=== PATIENT | female | born 1970 | race African-American/Black ===

== ENCOUNTER 2016-08-17 01:22 | Emergency (ER) | payer MEDICARE, OTHER ==
[~2016-08-17 01:22] MED LIST: *UNABLE1; AMB10 PO; APRES25 PO; ATIVAN2 MG PO; ATV1 PO; BACTRONASA NAS; BENTYL10 PO; C1 PO; C5 PO; CALCITRIOL; CALCITRIOL1 MCG/M1 OR; CALCIUM CARBONATE PO; CALMOSEPTINE O2.5 OZ TOP; CAT1 PO; CAT2 PO; CELEXA10 PO; CENTRUM TAB1 TAB PO; CLARIT10 PO; COREG; COREG PO; COREG3 PO; COREG6 PO; COUMADIN; Coumadin; DIAZEPAM 5 MG/ML IC; DURACLON; EPOGEN10000 MG/M SC; FLOVENT220 INH; HUMALOG SC; IRON325 MG PO; KAPIDEX30 MG PO; L80 PO; LANTUS FOR SC; LANTUS SC; LEVEMFLXPN SC; LEVEMIR SC; LORAZEPAM; LORT7 PO; MAGOX4 PO; MIRALAXPKT PO; MUCINEX D1 TA1 OR; NEPHRO PO; NEPHROCAPS PO; NEUR100 PO; NEUR300 PO; NEURONTIN; NEXIUM; NEXIUM40 PO; NITROSTAT0.4 MG SL; NORCO1 TAB PO; NORV5 PO; NOVOLOG SC; OPANA; OPANA10 MG PO; PCET PO; PEPCID; PEPCID40 MG OR; PERCOCET1 TA4 PO; PHENERGAN 2525 MG/M1 IV; PHOSLO PO; PR25 PO; PROAIR HFA INH; PROVHFA INH; PROZ10 PO; REG5 PO; REGLAN; RENAGEL800 PO; RENAL; RENVELA800 MG PO; REST15 PO; ROCALTROL 0.0.25 MCG OR; ROCALTROL 0.0.25 MCG PO; ROCALTROL0.5 MCG OR; SEROQUEL; SEROQUEL1C PO; SEROQUEL25 PO; SEVE800T PO; SINGULAIR1 PO; SYMBICORT 160/41 INH INH; T PO; TRAZ100 PO; TRAZ50 PO; TRAZADONE; TRIAMCINOLONE OINT TOP; TUMS; TUMSROLL PO; ULTRAM ER100 MG PO; ULTRAM50 PO; Z-PAK PO; Z100 PO; ZOL100 PO; ZOL50 PO; Zoloft; [UNRECOGNIZED DRUG - CODE]; [UNRECOGNIZED DRUG - CODE] IV
[2016-08-17 01:58] LABS: BASOPHILS 0.1 %; BASOPHILS ABSOLUTE 0.01 10/3/uL (0.0-0.16); EOSINOPHILS ABSOLUTE 0.45 10/3/uL (0.0-0.53); ER CBC TAT 0 Hrs 05 Mins; HEMATOCRIT 21.6 % (36.0-48.0); IMMATURE GRANULOCYTES 0.1 %; IMMATURE GRANULOCYTES ABSOLUTE 0.01 10/3/uL (0.0-0.11); LYMPHOCYTES 16.7 %; LYMPHOCYTES ABSOLUTE 1.25 10/3/uL (0.67-4.30); MANUAL DIFF NO %; MEAN CORPUS HGB CONC 32.4 g/dL (32.0-36.0); MEAN CORPUSCULAR HEMOGLOB 26.2 pg (26.0-34.0); MEAN CORPUSCULAR VOLUME 80.9 fL (80-100); MEAN PLATELET VOLUME 8.9 fL (9.2-13.0); MONOCYTES 7.6 %; MONOCYTES ABSOLUTE 0.57 10/3/uL (0.21-1.20); NEUTROPHILS 69.5 %; PLATELET COUNT 141 10/3/uL (150-400); RBC DISTRIBUTION WIDTH 16.7 % (12.0-16.0); RED CELL COUNT 2.67 10/6/uL (4.0-5.6); WHITE BLOOD CELLS 7.5 10/3/uL (4.5-10.5)
[2016-08-17 02:18] LABS: A/G RATIO 0.7 (0.7-1.9); ALBUMIN 3.4 G/DL (3.5-5.0); ALKALINE PHOSPHATASE 90 U/L (45-117); BUN (BLOOD UREA NITROGEN) 82 MG/DL (6-23); CALCIUM, SERUM 8.2 MG/DL (8.5-10.4); CHLORIDE, SERUM 100 MMOL/L (96-112); CO2 (CARBON DIOXIDE) 29 MMOL/L (24-34); GFR AFRICAN AMERICAN 4 ML/MIN (>=60); GFR NON AFRICAN AMERICAN 3 ML/MIN (>=60); GLOBULIN 4.7 G/DL (2.5-4.1); GLUCOSE, SERUM 74 MG/DL (60-99); POTASSIUM, SERUM 5.3 MMOL/L (3.5-5.3); SGOT(AST) 30 U/L (5-40); SGPT(ALT) 30 U/L (5-65); SODIUM, SERUM 137 MMOL/L (135-148); TOTAL BILIRUBIN 0.4 MG/DL (0-1.2); TOTAL PROTEIN 8.1 G/DL (6.0-8.5)
[2016-08-17 02:38] LABS: LACTATE 0.5 MMOL/L (0.3-2.4)
== END 2016-08-17 04:50 | disposition home or self-care (01) ==
LOC: ER 01:22
PROVIDERS: Specialist
DX: N18.6 End stage renal disease (principal); I12.0 Hypertensive chronic kidney disease with stage 5 chronic kidney disease or end stage renal disease; D63.8 Anemia in other chronic diseases classified elsewhere; R60.0 Localized edema; F32.9 Major depressive disorder, single episode, unspecified; F41.9 Anxiety disorder, unspecified; E11.22 Type 2 diabetes mellitus with diabetic chronic kidney disease; Z99.2 Dependence on renal dialysis; Z90.89 Acquired absence of other organs; Z91.041 Radiographic dye allergy status; Z88.8 Allergy status to other drugs, medicaments and biological substances; Z88.2 Allergy status to sulfonamides; Z91.013 Allergy to seafood; Z88.5 Allergy status to narcotic agent; Z91.040 Latex allergy status; Z88.1 Allergy status to other antibiotic agents; Z79.899 Other long term (current) drug therapy
CPT/HCPCS: 71010; 73700-LT; 80053; 83605; 83880; 85025; 96374; 96375; 99284; J1170; J2405

== ENCOUNTER 2016-10-07 13:00 | Inpatient (IN) | payer MEDICARE, OTHER ==
--- NOTE | ~2016-10-07 | CN ---
Consultation Report [facility] [address] [place]. [address] NAME: MONICA MARTINEZ : 74 STATUS : ADM IN PAT#: [id number] AGE: 45 ADM/REG DATE : 10/07/16 MR#: [id number] REPORT SERV DATE: 10/07/16 DICTATED BY: CARTER MARTINEZ DATE: 10/07/16 REPORT STATUS : Draft TRANSCRIBED BY: MODSwati DATE: 10/07/16 DATE OF CONSULTATION: HISTORY OF PRESENT ILLNESS: This is a 45-year-old patient who presented to the emergency room with increasing shortness of breath, respiratory failure, and hypoxia. The patient has end-stage renal disease, is on chronic dialysis, dialyzing on Wednesday, Wednesday, Wednesday. She has missed dialysis since 10/02/2016. She was seen in the ER and was placed on BiPAP. ABGs initially showed a pH of 7.18, pCO2 of 52, pO2 of 107, bicarbonate of 19. The patient was given 80 mg of IV Lasix, half amp of bicarbonate, 2 mg total of Ativan, and 125 of Solu- Medrol. The reason for the Solu-Medrol is not entirely clear. The patient was in severe respiratory distress, went for a head scan, and was still left on BiPAP and brought to the dialysis unit, breathing 42 times a minute, unresponsive, and in florid respiratory failure. She was immediately intubated even before dialysis was started because of extreme respiratory distress. At the time I saw her, the patient was using all accessory muscles and had retraction of the intercostal muscles. Not sure why the patient was not intubated in the ER. In any event, she is currently intubated, sedated, and undergoing dialysis. We will continue to follow her for management of her respiratory issues. ALLERGIES: SHE IS ALLERGIC TO IV DYE WHICH CAUSES A RASH; EDDIE INHIBITORS, WHICH CAUSE SWELLING; SULFA, SHELLFISH, DIPHENHYDRAMINE, VANCOMYCIN, LATEX; AND HAS ADVERSE REACTION TO DEXFERRUM, WHICH CAUSES BLISTERS ALL OVER; MORPHINE CAUSES ITCHING AND INCREASED HEART RATE. MEDICATIONS: This is a list of her medications that will need to be confirmed: She is on Proventil, Diflucan, was supposed to take one dose, Neurontin, hydralazine, hydrocodone, Ativan, Endocet, Phenergan, Zoloft, and Restoril. PAST MEDICAL HISTORY: Quite complex. She was recently seen at [facility], discharged on 09/24/2016 after she was treated for an infected graft in her left groin. This was removed. Sutures are still in place. She also has a PermCath placed via the right atrial appendage which was done by Dr. Chandler. The patient has extremely limited access, both venous and arterial, and this is the last site as far as I can tell that a dialysis access can be placed. The patient is extremely addicted to pain medicines. 1. She has insulin-dependent diabetes mellitus. 2. Hypertension. 3. 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 4. Obstructive sleep apnea. 5. Anxiety and depression. 6. History of seizure disorder. 7. Parathyroidectomy. 8. History of hypocalcemia and then recent resection of an infected left thigh graft. 9. Failed renal transplant with transplant nephrectomy, history of biopsy-proven FSGS. FAMILY HISTORY: Significant for end-stage renal disease in several family members. Strong family history of diabetes and hypertension. Consultation Report [address] [place]. [address] NAME: MONICA MARTINEZ : 74 STATUS : ADM IN PAT#: [id number] AGE: 45 ADM/REG DATE : 10/07/16 MR#: [id number] REPORT SERV DATE: 10/07/16 DICTATED BY: CARTER MARTINEZ DATE: 10/07/16 REPORT STATUS : Draft TRANSCRIBED BY: HALEIGH DATE: 10/07/16 SOCIAL HISTORY: There is not any reported history of alcohol or tobacco abuse or illicit drug use. REVIEW OF SYSTEMS: Could not be obtained from the patient since she required urgent intubation and mechanical ventilation. PHYSICAL EXAMINATION: VITAL SIGNS: Her temperature is 97.6, pulse was 140, respiratory rate was 42 breaths per minute on BiPAP, O2 saturation was 98% on 15 L when she arrived to the emergency room. SKIN: Cool to touch. HEENT: The head is atraumatic and normocephalic. Pupils are sluggish but equal. Sclerae anicteric. Conjunctivae are pink. Nasal mucosa is within normal limits. Oral mucosa is moist. Posterior pharynx was unremarkable during intubation. NECK: Supple without JVD, lymphadenopathy, or thyromegaly. She has a right-sided PermCath. She has several failed grafts in her left arm and numerous old scars in both groins and her right arm. LUNGS: Reveal coarse bilateral breath sounds. No wheezing was heard during my exam. CARDIAC: Reveals a regular rate and rhythm. No significant murmurs heard. BREASTS: Symmetrical without masses. ABDOMEN: Obese, nondistended. No tenderness could be elicited. Bowel sounds are present but diminished. RECTAL AND GENITAL: Exam was deferred. She still has sutures in the left groin and the left lateral thigh. There was no drainage from the site. LOWER EXTREMITIES: With trace edema. Pulses are markedly decreased in the lower extremities. NEUROLOGIC: Limited secondary to the patient's extreme respiratory distress and then requirement for sedation and mechanical ventilation. LAB AND OTHER TESTS: CT scan of the head was negative. ABG initially showed a pH of 7.18, pCO2 of 52, pO2 of 107, bicarbonate of 19. White cell count is 13, hemoglobin is 9, hematocrit is 29, and platelet count is 362,000. INR is 1.3. Lactic acid level is 2.6. Sodium is 140, potassium 5.4, chloride 105, bicarb 22, BUN 67, creatinine 12.4. Magnesium 2.1. LFTs are within normal limits. Lipase is normal. Troponin is 0.03. BNP is greater than 5000. Post intubation gas shows a pH of 7.36, pCO2 of 37, PO2 of 476, bicarb of 20, O2 saturation of 99.7. ASSESSMENT AND PLAN: This is a 45-year-old patient, end-stage renal disease, on dialysis, noncompliant with dialysis, hypertension, multiple graft placements that have failed, and a recent removal of an infected left graft who now presents in extreme hypercapnic, hypoxic respiratory failure requiring urgent intubation and mechanical ventilation, more than likely secondary to volume overload. At this point, we will follow the patient closely, obtain sputum Gram stain and cultures, procalcitonin, and blood cultures to rule out any other etiology of her presentation other than that of not being dialyzed since 10/02/2016. The case has been discussed with Nephrology. She will be on DVT prophylaxis with subcutaneous Consultation Report [facility] [address] [place]. [address] NAME: MONICA MARTINEZ : 74 STATUS : ADM IN PAT#: [id number] AGE: 45 ADM/REG DATE : 10/07/16 MR#: [id number] REPORT SERV DATE: 10/07/16 DICTATED BY: CARTER MARTINEZ DATE: 10/07/16 REPORT STATUS : Draft TRANSCRIBED BY: HALEIGH DATE: 10/07/16 heparin, GI prophylaxis with IV Protonix. The only access we have is the PermCath and pending approval of any other site for access by Vascular Surgery, the PermCath will need to be used. The patient is in critical condition and is at risk for further hemodynamic deterioration and needs frequent manipulation of the vent and monitoring of her blood pressure. Total critical care time will be 60 minutes, starting at 2:00 p.m. and ending at 3:00 p.m., with 10 minutes required for intubation for a total of 50 minutes of critical care time. /HALEIGH Carter Martinez M.D. / [id number] CC: Carter Martinez M.D.
--- NOTE | ~2016-10-07 | HP ---
History And Physical [facility] [address] [place]. [address] NAME: MONICA MARTINEZ : 74 STATUS : ADM IN [facility]#: [id number] AGE: 45 ADM/REG DATE : 10/07/16 MR#: [id number] REPORT SERV DATE: 10/07/16 DICTATED BY: DATE: REPORT STATUS : Draft TRANSCRIBED BY: MODL DATE: 10/07/16 DATE OF ADMISSION: 10/07/2016 CHIEF COMPLAINT: Chest pain and shortness of breath. HISTORY OF PRESENT ILLNESS: Ms. Martinez is a 45-year-old, black female, well known to our service with end-stage renal disease, dialyzes on Wednesday, Wednesday, and Wednesday at [facility] and apparently presented to the emergency room for the above complaints and in extreme respiratory distress, tachypnea with respiratory rate in the 60s, hypoxia and they placed the patient on BiPAP with some improvement; however, not a significant improvement. Her ABG did show improvement in hypoxia, but she is still quite tachypneic and by the time she arrived to the dialysis unit on BiPAP, the patient was nonresponsive and had to be intubated on her arrival here, so history really could not be obtained by us. She was just most recently discharged from [facility] on 09/24/2016 for an infected AV graft and then she had a prolonged stay there. She had a left thigh graft and then CT Surgery placed a PermCath in her right atrium. We had called the clinic to get some details about the recent events, apparently she was last dialyzed on 10/02/2016. Her chest x-ray has some edema, but nothing remarkable. She had a CT of the head in the emergency room, that was negative. White blood cell count is only mildly elevated and she is going to be admitted to the intensive care unit for further evaluation and treatment. PAST MEDICAL HISTORY: End-stage renal disease; failed renal transplant; bilateral SVC syndrome; hypertension; multiple AV accesses with failure; most recently a left thigh graft with abscess and infection that had to be removed; obstructive sleep apnea; chronic pain, uses excessive pain medicine; anxiety; FSGS secondary to hyperparathyroidism; seizure disorder; parathyroidectomy; and hypocalcemia. FAMILY MEDICAL HISTORY: Positive strongly for end-stage renal disease in mother and sister. SOCIAL HISTORY: Occasionally smokes marijuana for the last history. No cigarettes or alcohol. Lives with family. MEDICATIONS AT HOME: This is an incomplete list and it says hydrocodone, lorazepam, oxycodone, Phenergan, Zoloft, Restoril, albuterol, Diflucan, Neurontin, and hydralazine. REVIEW OF SYSTEMS: Unable to obtain. PHYSICAL EXAMINATION: VITAL SIGNS: Blood pressure of 194/129; heart rate in the 130s; respiratory rate on arrival was in the 30s, now she is currently intubated. GENERAL: This is an ill-appearing black female. She was not awake or oriented on her arrival here. She was in respiratory distress. HEENT: Normocephalic and atraumatic. Conjunctivae are clear. Sclerae are anicteric. She does have periorbital edema. Oral mucosa could not be assessed. On arrival, she had BiPAP on and then she has been intubated during the course of my exam. History And Physical [address] [address] NAME: MONICA MARTINEZ : 74 STATUS : ADM IN [facility]#: [id number] AGE: 45 ADM/REG DATE : 10/07/16 MR#: [id number] REPORT SERV DATE: 10/07/16 DICTATED BY: DATE: REPORT STATUS : Draft TRANSCRIBED BY: HALEIGH DATE: 10/07/16 LUNGS: Her respirations was tachypneic. She had bilateral wheezing noted. HEART RATE: Heart tones are distant. I did not hear any murmur, rub, or gallop. She has a staple across her chest wall from her PermCath placement. There is no drainage. No surrounding erythema. No fluctuance or induration. ABDOMEN: Obese, soft, and nontender. Bowel sounds are active. BACK: I could not examine her back. EXTREMITIES: She does have some mild edema, but not any significant. SKIN: No unusual rashes or skin lesions. NEURO: Could not be performed. PERTINENT LABS AND X-RAYS: CT of the head was negative. Labs: ABG; pH of 7.36, pCO2 of 37, and PO2 of 476. BNP of greater than 5000. Sodium 140, potassium 5.4, chloride 105, CO2 of 22, BUN of 67, creatinine of 12, and magnesium 2.1. Bilirubin is 0.4, alkaline phosphatase is 105, SGOT of 28, SGPT of 19, lipase of 328, troponin 0.03, and lactate 2.6. IMPRESSION: 1. Acute hypercapnic-hypoxic respiratory failure, requiring intubation. 2. Noncompliance to hemodialysis. 3. Failed renal transplant. 4. Type 2 diabetes. 5. Obstructive sleep apnea. 6. Bilateral superior vena cava syndrome. 7. Accelerated hypertension. 8. Calciphylaxis, chronic pain. 9. End-stage renal disease, Wednesday, Wednesday, Wednesday [address]. 10.History of seizure. 11.History of parathyroidectomy with subsequent hypocalcemia. 12.Anxiety. 13.Depression. 14.Focal segmental glomerulosclerosis. 15.Obesity. 16.Drug-seeking behavior. PLAN: She is being emergently dialyzed as we speak and Critical Care has been consulted, and we have to get a better access in which is difficult in this patient and she will probably require drip at some point if we can get access for such. She will get cultures. Ventilator support will be managed by Pulmonary Critical Care. Further orders and recommendations pending clinical course. NICOLE/HALEIGH JIM Shore / [id number] History And Physical [address] [address] NAME: MONICA MARTINEZ NEERAJ : 74 STATUS : ADM IN PAT#: [id number] AGE: 45 ADM/REG DATE : 10/07/16 MR#: [id number] REPORT SERV DATE: 10/07/16 DICTATED BY: DATE: REPORT STATUS : Draft TRANSCRIBED BY: KAMALAL DATE: 10/07/16 CC: Tucker Pal M.D.
--- NOTE | ~2016-10-07 | OP ---
Record Of [facility] [address] [address] NAME: MONICA MARTINEZ : 74 STATUS : ADM IN PAT#: [id number] AGE: 45 ADM/REG DATE : 10/07/16 MR#: [id number] REPORT SERV DATE: 10/07/16 DICTATED BY: CARTER MARTINEZ DATE: 10/07/16 REPORT STATUS : Draft TRANSCRIBED BY: MODL DATE: 10/07/16 DATE OF PROCEDURE: 10/07/2016 PROCEDURE: Intubation. REASON: Respiratory distress. The patient needed urgent intubation, so consent was not obtained. PROCEDURE: 5 mL of Diprivan and 20 mg of IV etomidate were given. The patient was intubated using a GlideScope. Vocal cords were well visualized and intubation was accomplished using a 7.5 endotracheal tube and was done on the first attempt. Bilateral breath sounds were heard. CO2 sensor changed appropriate color from blue to yellow. Chest x-ray is pending. /HALEIGH Carter Martinez M.D. / [id number] CC: Tucker Pal M.D.
--- NOTE | ~2016-10-07 | DS ---
Discharge Summary [facility] [address] [place]. [address] NAME: MONICA MARTINEZ : 74 STATUS : ADM IN PAT#: [id number] AGE: 45 ADM/REG DATE : 10/07/16 MR#: [id number] REPORT SERV DATE: 10/13/16 DICTATED BY: CAITLYN YING DATE: 10/12/16 REPORT STATUS : Draft TRANSCRIBED BY: MODL DATE: 10/12/16 ADMISSION DATE: 10/07/2016 DISCHARGE DATE: 10/12/2016 INDICATION FOR ADMISSION: Chest pain, shortness of breath. DISCHARGE DIAGNOSES: 1. Acute hypercapnic hypoxemic respiratory failure, requiring intubation. 2. Noncompliance with hemodialysis. 3. Failed renal transplant. 4. Type 2 diabetes mellitus. 5. Obstructive sleep apnea. 6. Bilateral superior vena cava syndrome. 7. Accelerated hypertension. 8. History of chronic pain from calciphylaxis. 9. History of chronic hypocalcemia following parathyroidectomy for calciphylaxis. 10.End-stage renal disease, dialyzing Wednesday, Wednesday, Wednesday at [address] [place] [address] by right atrial PermCath placed at [place] by Cardiothoracic Surgery directly into right atrium with pericardial wrap. 11.History of seizure disorder. 12.Anxiety. 13.Depression. 14.History of focal segmental glomerular sclerosis leading to end-stage renal disease, with recurrence leading to failed renal transplant. 15.Obesity. 16.Drug-seeking behavior. HOSPITAL COURSE: The patient presented to the emergency room with altered mentation reporting shortness of breath and chest pain. She had been noncompliant with dialysis and was placed on BiPAP initially. She was brought to hemodialysis unit emergently for dialysis with fluid removal and actually required intubation. She had recently been released from [facility] after removal of an infected left thigh graft, which was her last possible dialysis access. CT surgery placed a PermCath into her right atrium directly through the chest wall. This appears to be her last dialysis access. Her last dialysis prior to this admission was on 10/02/2016. She underwent emergent dialysis and was dialyzed on 10/07/2016, 10/08/2016, 10/10/2016, and 10/12/2016. She had significant fluid removal. Extubation was achieved and she was transferred to the floor. She had been on Cardene for accelerated hypertension while in the unit, but was managed after volume removal with oral medications. She continued to request Dilaudid after transfer from the unit. She was advised that this was her last dialysis access. She was instructed that she needed to be compliant with treatment and followup each treatment for catheter care of the access. She was also advised that it would be in her best interest to go to [place] if any access intervention needed to be made because this would have to be done by her CT surgeon. Palliative care was asked to see the patient prior to discharge due to the exhaustion of vascular access. She continued to request Dilaudid Discharge Summary [facility] [id number] [place]. [address] NAME: MONICA MARTINEZ : 74 STATUS : ADM IN PAT#: [id number] AGE: 45 ADM/REG DATE : 10/07/16 MR#: [id number] REPORT SERV DATE: 10/13/16 DICTATED BY: CAITLYN YING DATE: 10/12/16 REPORT STATUS : Draft TRANSCRIBED BY: HALEIGH DATE: 10/12/16 through the hospitalization and evidence for drug-seeking behavior. The patient will be discharged home with followup at [address] [place] [address] as scheduled. DISCHARGE MEDICATIONS: Ativan 1 mg twice daily as needed, Zoloft 50 mg at bedtime, Diflucan 150 mg x1 dose on 10/03/2016 for completion of therapy, hydrocodone 10/325 one twice daily p.r.n., hydralazine 25 mg three times daily, Restoril 15 mg at bedtime p.r.n., albuterol inhaler two puffs 3 times daily p.r.n., Neurontin 100 mg q.a.m. and 300 mg at bedtime, acetaminophen 650 mg daily p.r.n., Lac-Hydrin lotion 12% applied topically as needed, and sublingual nitroglycerin 0.4 mg p.r.n. chest pain. FOLLOWUP: Follow up on dialysis at [address] [place] [address] as scheduled. DIET: Diet will be renal diet, 1500 mL fluid restriction per day. Combine with 2000 calorie ADA diet. ACTIVITY: Activity will be per home routine and she was advised to keep catheter site dry. DICTATED BY: Aldair Allen/HALEIGH Caitlyn Ying M.D. / [id number] CC: Caitlyn Ying M.D.
[2016-10-07 12:03] LABS: BE (BASE EXCESS) -9.1 MEQ/L (0 +/- 2.5); CARBOXYHEMOGLOBIN 1.6 % (0-3); DEVICE NRB; INSTRUMENT SERIAL # 8087; METHEMOGLOBIN 0.4 % (0-3); O2 CONTENT 13.5 VOL% (18-24); PCO2 (CO2 TENSION) 52 MMHG (35-45); PO2 (O2 TENSION) 107 MMHG (79-93); SAMPLE Arterial; pH 7.18 (7.37-7.43)
[2016-10-07 12:37] LABS: BASOPHILS 0.5 %; BASOPHILS ABSOLUTE 0.07 10/3/uL (0.0-0.16); EOSINOPHILS 6.3 %; EOSINOPHILS ABSOLUTE 0.82 10/3/uL (0.0-0.53); ER CBC TAT 0 Hrs 05 Mins; HEMATOCRIT 29.3 % (36.0-48.0); IMMATURE GRANULOCYTES 0.5 %; IMMATURE GRANULOCYTES ABSOLUTE 0.06 10/3/uL (0.0-0.11); LYMPHOCYTES 20.2 %; LYMPHOCYTES ABSOLUTE 2.63 10/3/uL (0.67-4.30); MANUAL DIFF NO %; MEAN CORPUS HGB CONC 30.7 g/dL (32.0-36.0); MEAN CORPUSCULAR HEMOGLOB 24.3 pg (26.0-34.0); MEAN PLATELET VOLUME 8.8 fL (9.2-13.0); MONOCYTES 6.8 %; MONOCYTES ABSOLUTE 0.88 10/3/uL (0.21-1.20); NEUTROPHILS 65.7 %; NEUTROPHILS ABSOLUTE 8.57 10/3/uL (2.02-8.40); PLATELET COUNT 362 10/3/uL (150-400); RBC DISTRIBUTION WIDTH 18.2 % (12.0-16.0); RED CELL COUNT 3.71 10/6/uL (4.0-5.6)
[2016-10-07 12:44] LABS: INTERNATIONAL NORMAL RATI 1.3 UNITS (-); PARTIAL THROMBO TIME 27.9 SEC (22.5-37.2); PROTIME (NOT ORD) 16.1 SEC (12.0-14.5)
[2016-10-07 12:54] LABS: LACTATE 2.6 MMOL/L (0.3-2.4)
[2016-10-07 12:55] LABS: CALCIUM, SERUM 8.6 MG/DL (8.5-10.4); CHEST PAIN PROFILE TAT 0 Hrs 23 Mins; CHLORIDE, SERUM 105 MMOL/L (96-112); DIRECT BILIRUBIN 0.1 MG/DL (0.0-0.4); GFR AFRICAN AMERICAN 4 ML/MIN (>=60); GFR NON AFRICAN AMERICAN 3 ML/MIN (>=60); INDIRECT BILIRUBIN(NOT ORDER) 0.3 MG/DL (0.1-0.9); POTASSIUM, SERUM 5.4 MMOL/L (3.5-5.3); SGOT(AST) 28 U/L (5-40); SGPT(ALT) 19 U/L (5-65); SODIUM, SERUM 140 MMOL/L (135-148); TOTAL BILIRUBIN 0.4 MG/DL (0-1.2); TOTAL PROTEIN 9.1 G/DL (6.0-8.5); TROPONIN I 0.03 NG/ML (<0.05)
[2016-10-07 12:56] LABS: ALKALINE PHOSPHATASE 105 U/L (45-117); BUN (BLOOD UREA NITROGEN) 67 MG/DL (6-23); CO2 (CARBON DIOXIDE) 22 MMOL/L (24-34); GLUCOSE, SERUM 139 MG/DL (60-99)
[2016-10-07 13:17] LABS: BE (BASE EXCESS) -4.6 MEQ/L (0 +/- 2.5); BIPAP 18/7 cm.H2O; CARBOXYHEMOGLOBIN 1.1 % (0-3); HCO3 (ACTUAL BICARBONATE) 20.4 MEQ/L (23-27); HEMOBLOGIN CONTENT 9.6 G/DL (12-16); INSTRUMENT SERIAL # 8087; METHEMOGLOBIN 0.5 % (0-3); O2 CONTENT 14.6 VOL% (18-24); PCO2 (CO2 TENSION) 37 MMHG (35-45); PO2 (O2 TENSION) 476 MMHG (79-93); SAMPLE Arterial; pH 7.36 (7.37-7.43)
[2016-10-07] MEDS ORDERED: NORCO1 TAB PO (13:25)
[2016-10-07] MEDS ORDERED: FLUCON150 PO (13:25)
[2016-10-07] MEDS ORDERED: ENDOCET1 TA3 (13:26)
[2016-10-07] MEDS ORDERED: ATV1 PO (13:26)
[2016-10-07] MEDS ORDERED: NEUR100 PO (13:26)
[2016-10-07] MEDS ORDERED: ZOL50 PO (13:27)
[2016-10-07] MEDS ORDERED: APRES25 PO (13:27)
[2016-10-07] MEDS ORDERED: REST15 PO (13:28)
[2016-10-07] MEDS ORDERED: PR25 (13:28)
[2016-10-07] MEDS ORDERED: PROVHFA INH (13:28)
[2016-10-07] MEDS ORDERED: *UNABLE3 (13:29)
[2016-10-07 15:07] LABS: INSTRUMENT SERIAL # 8083; PCO2 (CO2 TENSION) 42 MMHG (35-45); PO2 (O2 TENSION) 292 MMHG (79-93); pH 7.36 (7.37-7.43)
[2016-10-07 15:08] LABS: ALLENS TEST Pos; BE (BASE EXCESS) -1.9 MEQ/L (0 +/- 2.5); CARBOXYHEMOGLOBIN 0.4 % (0-3); HCO3 (ACTUAL BICARBONATE) 23.5 MEQ/L (23-27); HEMOBLOGIN CONTENT 10.3 G/DL (12-16); METHEMOGLOBIN 0.4 % (0-3); MODE CMV; O2 CONTENT 15.1 VOL% (18-24); OPERATOR ID 35784; SAMPLE Arterial; TIDAL VOLUME 500 ML
[2016-10-07 16:36] LABS: PROCALCITONIN 0.23 ng/mL (<0.5)
[2016-10-07 20:15] LABS: SALICYLATE 1.7 MG/DL (-)
[2016-10-07 20:18] LABS: ALCOHOL < 10 MG/DL (0)
[2016-10-08 01:06] LABS: CPK (IF ELEVATED MB BANDS) 95 U/L (0-200); SALICYLATE 1.8 MG/DL (-); TROPONIN I 0.12 NG/ML (<0.05)
[2016-10-08 01:07] LABS: ACETAMINOPHEN LEVEL (TYLENOL) < 2.0 MCG/ML (10.0-20.0)
[2016-10-08 01:08] LABS: ALCOHOL < 10 MG/DL (0)
[2016-10-08 03:52] LABS: ALLENS TEST Pos; BE (BASE EXCESS) -0.4 MEQ/L (0 +/- 2.5); CARBOXYHEMOGLOBIN 0.6 % (0-3); HCO3 (ACTUAL BICARBONATE) 24.4 MEQ/L (23-27); HEMOBLOGIN CONTENT 8.5 G/DL (12-16); INSTRUMENT SERIAL # 35151; METHEMOGLOBIN 0.6 % (0-3); MODE CMV; O2 CONTENT 10.2 VOL% (18-24); OPERATOR ID 23712; PCO2 (CO2 TENSION) 41 MMHG (35-45); PO2 (O2 TENSION) 57 MMHG (79-93); SAMPLE Arterial; TIDAL VOLUME 470 ML; pH 7.39 (7.37-7.43)
[2016-10-08 03:59] LABS: BASOPHILS 0 %; EOSINOPHILS 0.2 %; EOSINOPHILS ABSOLUTE 0.01 10/3/uL (0.0-0.53); HEMATOCRIT 24.1 % (36.0-48.0); HEMOGLOBIN 7.4 g/dL (12.0-16.0); IMMATURE GRANULOCYTES 0.5 %; IMMATURE GRANULOCYTES ABSOLUTE 0.03 10/3/uL (0.0-0.11); LYMPHOCYTES 6.2 %; LYMPHOCYTES ABSOLUTE 0.39 10/3/uL (0.67-4.30); MANUAL DIFF NO %; MEAN CORPUS HGB CONC 30.7 g/dL (32.0-36.0); MEAN CORPUSCULAR HEMOGLOB 23.9 pg (26.0-34.0); MEAN PLATELET VOLUME 8.3 fL (9.2-13.0); MONOCYTES 4.3 %; MONOCYTES ABSOLUTE 0.27 10/3/uL (0.21-1.20); NEUTROPHILS 88.8 %; NEUTROPHILS ABSOLUTE 5.63 10/3/uL (2.02-8.40); PLATELET COUNT 200 10/3/uL (150-400); RED CELL COUNT 3.09 10/6/uL (4.0-5.6); WHITE BLOOD CELLS 6.3 10/3/uL (4.5-10.5)
[2016-10-08 04:19] LABS: A/G RATIO 0.5 (0.7-1.9); ALBUMIN 2.6 G/DL (3.5-5.0); CHLORIDE, SERUM 102 MMOL/L (96-112); GLOBULIN 5.3 G/DL (2.5-4.1); GLUCOSE, SERUM 147 MG/DL (60-99); PHOSPHORUS, SERUM 5.7 MG/DL (2.5-4.5); POTASSIUM, SERUM 4.7 MMOL/L (3.5-5.3); SGOT(AST) 20 U/L (5-40); SGPT(ALT) 14 U/L (5-65); SODIUM, SERUM 140 MMOL/L (135-148); TOTAL BILIRUBIN 0.4 MG/DL (0-1.2); TOTAL PROTEIN 7.9 G/DL (6.0-8.5)
[2016-10-08 04:20] LABS: ALKALINE PHOSPHATASE 89 U/L (45-117); BUN (BLOOD UREA NITROGEN) 45 MG/DL (6-23); CO2 (CARBON DIOXIDE) 27 MMOL/L (24-34); CREATININE 8.68 MG/DL (0.55-1.02); GFR AFRICAN AMERICAN 6 ML/MIN (>=60); GFR NON AFRICAN AMERICAN 5 ML/MIN (>=60)
[2016-10-08 04:57] LABS: CPK (IF ELEVATED MB BANDS) 75 U/L (0-200)
[2016-10-08 05:01] LABS: TROPONIN I 0.08 NG/ML (<0.05)
[2016-10-09 03:32] LABS: BASOPHILS 0.3 %; BASOPHILS ABSOLUTE 0.02 10/3/uL (0.0-0.16); EOSINOPHILS 5.4 %; EOSINOPHILS ABSOLUTE 0.38 10/3/uL (0.0-0.53); HEMATOCRIT 25.9 % (36.0-48.0); HEMOGLOBIN 7.6 g/dL (12.0-16.0); IMMATURE GRANULOCYTES 0.4 %; IMMATURE GRANULOCYTES ABSOLUTE 0.03 10/3/uL (0.0-0.11); LYMPHOCYTES 13.9 %; LYMPHOCYTES ABSOLUTE 0.98 10/3/uL (0.67-4.30); MEAN CORPUS HGB CONC 29.3 g/dL (32.0-36.0); MEAN CORPUSCULAR HEMOGLOB 23.6 pg (26.0-34.0); MEAN PLATELET VOLUME 8.5 fL (9.2-13.0); MONOCYTES 8.7 %; MONOCYTES ABSOLUTE 0.61 10/3/uL (0.21-1.20); NEUTROPHILS 71.3 %; NEUTROPHILS ABSOLUTE 5.02 10/3/uL (2.02-8.40); PLATELET COUNT 242 10/3/uL (150-400); RBC DISTRIBUTION WIDTH 18.2 % (12.0-16.0); RED CELL COUNT 3.22 10/6/uL (4.0-5.6)
[2016-10-09 03:35] LABS: MANUAL DIFF NO %; MEAN CORPUSCULAR VOLUME 80.4 fL (80-100)
[2016-10-09 03:45] LABS: ALBUMIN 2.7 G/DL (3.5-5.0); CHLORIDE, SERUM 100 MMOL/L (96-112); CO2 (CARBON DIOXIDE) 29 MMOL/L (24-34); POTASSIUM, SERUM 4.1 MMOL/L (3.5-5.3); SODIUM, SERUM 138 MMOL/L (135-148)
[2016-10-09 03:46] LABS: BUN (BLOOD UREA NITROGEN) 31 MG/DL (6-23); CREATININE 6.29 MG/DL (0.55-1.02); GFR AFRICAN AMERICAN 9 ML/MIN (>=60); GFR NON AFRICAN AMERICAN 7 ML/MIN (>=60); GLUCOSE, SERUM 102 MG/DL (60-99); PHOSPHORUS, SERUM 4.6 MG/DL (2.5-4.5)
[2016-10-09 05:51] LABS: PROCALCITONIN 34.14 ng/mL (<0.5)
[2016-10-10 03:26] LABS: BASOPHILS 0.4 %; BASOPHILS ABSOLUTE 0.03 10/3/uL (0.0-0.16); EOSINOPHILS 10.8 %; EOSINOPHILS ABSOLUTE 0.73 10/3/uL (0.0-0.53); HEMATOCRIT 24.8 % (36.0-48.0); HEMOGLOBIN 7.4 g/dL (12.0-16.0); IMMATURE GRANULOCYTES 0.6 %; IMMATURE GRANULOCYTES ABSOLUTE 0.04 10/3/uL (0.0-0.11); LYMPHOCYTES ABSOLUTE 1.02 10/3/uL (0.67-4.30); MANUAL DIFF NO %; MEAN CORPUS HGB CONC 29.8 g/dL (32.0-36.0); MEAN CORPUSCULAR HEMOGLOB 23.8 pg (26.0-34.0); MEAN CORPUSCULAR VOLUME 79.7 fL (80-100); MEAN PLATELET VOLUME 9.1 fL (9.2-13.0); MONOCYTES 8.4 %; MONOCYTES ABSOLUTE 0.57 10/3/uL (0.21-1.20); NEUTROPHILS 64.8 %; PLATELET COUNT 252 10/3/uL (150-400); RBC DISTRIBUTION WIDTH 18.3 % (12.0-16.0); RED CELL COUNT 3.11 10/6/uL (4.0-5.6); WHITE BLOOD CELLS 6.8 10/3/uL (4.5-10.5)
[2016-10-10 03:33] LABS: ALBUMIN 2.7 G/DL (3.5-5.0); CALCIUM, SERUM 7.9 MG/DL (8.5-10.4); CHLORIDE, SERUM 100 MMOL/L (96-112); CO2 (CARBON DIOXIDE) 28 MMOL/L (24-34); GFR AFRICAN AMERICAN 6 ML/MIN (>=60); GFR NON AFRICAN AMERICAN 6 ML/MIN (>=60); GLUCOSE, SERUM 90 MG/DL (60-99); PHOSPHORUS, SERUM 4.3 MG/DL (2.5-4.5); POTASSIUM, SERUM 4.5 MMOL/L (3.5-5.3); SODIUM, SERUM 135 MMOL/L (135-148)
[2016-10-10 03:34] LABS: BUN (BLOOD UREA NITROGEN) 45 MG/DL (6-23); CREATININE 7.97 MG/DL (0.55-1.02)
[2016-10-10] MEDS ORDERED: LAC-HYDRIN TOP (10:55)
[2016-10-10] MEDS ORDERED: T PO (10:55)
[2016-10-10] MEDS ORDERED: NITROQUICK0.4 MG PO (10:55)
[2016-10-10] MEDS ORDERED: NEUR300 PO (10:55)
[2016-10-11 05:55] LABS: BASOPHILS 0.3 %; BASOPHILS ABSOLUTE 0.02 10/3/uL (0.0-0.16); EOSINOPHILS 9.5 %; EOSINOPHILS ABSOLUTE 0.58 10/3/uL (0.0-0.53); HEMATOCRIT 24.4 % (36.0-48.0); HEMOGLOBIN 7.2 g/dL (12.0-16.0); IMMATURE GRANULOCYTES 0.5 %; IMMATURE GRANULOCYTES ABSOLUTE 0.03 10/3/uL (0.0-0.11); LYMPHOCYTES 14.8 %; MEAN CORPUS HGB CONC 29.5 g/dL (32.0-36.0); MEAN CORPUSCULAR HEMOGLOB 23.8 pg (26.0-34.0); MEAN CORPUSCULAR VOLUME 80.5 fL (80-100); MEAN PLATELET VOLUME 8.9 fL (9.2-13.0); MONOCYTES 9.4 %; MONOCYTES ABSOLUTE 0.57 10/3/uL (0.21-1.20); NEUTROPHILS 65.5 %; NEUTROPHILS ABSOLUTE 3.99 10/3/uL (2.02-8.40); PLATELET COUNT 212 10/3/uL (150-400); RED CELL COUNT 3.03 10/6/uL (4.0-5.6); WHITE BLOOD CELLS 6.1 10/3/uL (4.5-10.5)
[2016-10-11 05:58] LABS: MANUAL DIFF NO %
[2016-10-11 06:05] LABS: ALBUMIN 2.6 G/DL (3.5-5.0); CALCIUM, SERUM 8.1 MG/DL (8.5-10.4); CHLORIDE, SERUM 103 MMOL/L (96-112); CO2 (CARBON DIOXIDE) 27 MMOL/L (24-34); GLUCOSE, SERUM 100 MG/DL (60-99); POTASSIUM, SERUM 3.9 MMOL/L (3.5-5.3); SODIUM, SERUM 136 MMOL/L (135-148)
[2016-10-11 06:06] LABS: BUN (BLOOD UREA NITROGEN) 31 MG/DL (6-23); CREATININE 6.31 MG/DL (0.55-1.02); GFR AFRICAN AMERICAN 9 ML/MIN (>=60); GFR NON AFRICAN AMERICAN 7 ML/MIN (>=60); PHOSPHORUS, SERUM 3.3 MG/DL (2.5-4.5)
[2016-10-12 05:00] LABS: BASOPHILS 0.3 %; BASOPHILS ABSOLUTE 0.02 10/3/uL (0.0-0.16); EOSINOPHILS 7.9 %; HEMATOCRIT 24.1 % (36.0-48.0); HEMOGLOBIN 7.3 g/dL (12.0-16.0); IMMATURE GRANULOCYTES 0.8 %; IMMATURE GRANULOCYTES ABSOLUTE 0.06 10/3/uL (0.0-0.11); LYMPHOCYTES 13.9 %; LYMPHOCYTES ABSOLUTE 1.05 10/3/uL (0.67-4.30); MEAN CORPUS HGB CONC 30.3 g/dL (32.0-36.0); MEAN CORPUSCULAR HEMOGLOB 23.9 pg (26.0-34.0); MEAN PLATELET VOLUME 8.6 fL (9.2-13.0); MONOCYTES 7.1 %; MONOCYTES ABSOLUTE 0.54 10/3/uL (0.21-1.20); NEUTROPHILS ABSOLUTE 5.29 10/3/uL (2.02-8.40); PLATELET COUNT 254 10/3/uL (150-400); RBC DISTRIBUTION WIDTH 18.3 % (12.0-16.0); RED CELL COUNT 3.05 10/6/uL (4.0-5.6); WHITE BLOOD CELLS 7.6 10/3/uL (4.5-10.5)
[2016-10-12 05:03] LABS: MANUAL DIFF NO %
[2016-10-12 05:16] LABS: ALBUMIN 2.8 G/DL (3.5-5.0); CALCIUM, SERUM 8.8 MG/DL (8.5-10.4); CHLORIDE, SERUM 101 MMOL/L (96-112); CO2 (CARBON DIOXIDE) 25 MMOL/L (24-34); GLUCOSE, SERUM 80 MG/DL (60-99); POTASSIUM, SERUM 4.6 MMOL/L (3.5-5.3); SODIUM, SERUM 134 MMOL/L (135-148)
[2016-10-12 05:25] LABS: BUN (BLOOD UREA NITROGEN) 43 MG/DL (6-23); CREATININE 7.73 MG/DL (0.55-1.02); GFR AFRICAN AMERICAN 7 ML/MIN (>=60); GFR NON AFRICAN AMERICAN 6 ML/MIN (>=60); PHOSPHORUS, SERUM 4.9 MG/DL (2.5-4.5)
[2016-10-13 10:51] LABS: BASOPHILS 0.1 %; BASOPHILS ABSOLUTE 0.01 10/3/uL (0.0-0.16); EOSINOPHILS 6.8 %; EOSINOPHILS ABSOLUTE 0.47 10/3/uL (0.0-0.53); HEMOGLOBIN 8.7 g/dL (12.0-16.0); IMMATURE GRANULOCYTES 0.3 %; IMMATURE GRANULOCYTES ABSOLUTE 0.02 10/3/uL (0.0-0.11); LYMPHOCYTES 12.7 %; LYMPHOCYTES ABSOLUTE 0.88 10/3/uL (0.67-4.30); MEAN CORPUS HGB CONC 31.1 g/dL (32.0-36.0); MEAN CORPUSCULAR HEMOGLOB 25.1 pg (26.0-34.0); MEAN CORPUSCULAR VOLUME 80.9 fL (80-100); MEAN PLATELET VOLUME 8.9 fL (9.2-13.0); MONOCYTES 5.6 %; MONOCYTES ABSOLUTE 0.39 10/3/uL (0.21-1.20); NEUTROPHILS 74.5 %; NEUTROPHILS ABSOLUTE 5.17 10/3/uL (2.02-8.40); PLATELET COUNT 206 10/3/uL (150-400); RBC DISTRIBUTION WIDTH 17.7 % (12.0-16.0); RED CELL COUNT 3.46 10/6/uL (4.0-5.6); WHITE BLOOD CELLS 6.9 10/3/uL (4.5-10.5)
[2016-10-13 10:52] LABS: MANUAL DIFF NO %
[2016-10-13 11:05] LABS: ALBUMIN 2.6 G/DL (3.5-5.0); CALCIUM, SERUM 8.3 MG/DL (8.5-10.4); CHLORIDE, SERUM 101 MMOL/L (96-112); CO2 (CARBON DIOXIDE) 26 MMOL/L (24-34); PHOSPHORUS, SERUM 4.6 MG/DL (2.5-4.5); POTASSIUM, SERUM 4.4 MMOL/L (3.5-5.3); SODIUM, SERUM 134 MMOL/L (135-148)
[2016-10-13 11:06] LABS: BUN (BLOOD UREA NITROGEN) 38 MG/DL (6-23); CREATININE 6.87 MG/DL (0.55-1.02); GFR AFRICAN AMERICAN 8 ML/MIN (>=60); GFR NON AFRICAN AMERICAN 7 ML/MIN (>=60); GLUCOSE, SERUM 205 MG/DL (60-99)
== END 2016-10-13 15:13 | disposition home health service (06) | DRG 208 ==
LOC: ER 13:00 → CCU 15:08 → 4SO 10-10 12:47
PROVIDERS: Emergency Medicine; Internal Medicine Nephrology; Nurse Practitioner
PROC: 5A1945Z Respiratory Ventilation, 24-96 Consecutive Hours (ICD-10-PCS; principal; 2016-10-07)
PROC: 0BH17EZ Insertion of Endotracheal Airway into Trachea, Via Natural or Artificial Opening (ICD-10-PCS; 2016-10-07)
PROC: 5A1D60Z (ICD-10-PCS; 2016-10-07)
PROC: 02H633Z Insertion of Infusion Device into Right Atrium, Percutaneous Approach (ICD-10-PCS; 2016-10-07)
PROC: 30243N1 Transfusion of Nonautologous Red Blood Cells into Central Vein, Percutaneous Approach (ICD-10-PCS; 2016-10-12)
DX: J96.22 Acute and chronic respiratory failure with hypercapnia (principal); T86.891 Other transplanted tissue failure; E11.22 Type 2 diabetes mellitus with diabetic chronic kidney disease; N18.6 End stage renal disease; I12.0 Hypertensive chronic kidney disease with stage 5 chronic kidney disease or end stage renal disease; I87.1 Compression of vein; Z94.0 Kidney transplant status; Z99.2 Dependence on renal dialysis; E83.59 Other disorders of calcium metabolism; G40.909 Epilepsy, unspecified, not intractable, without status epilepticus; E83.51 Hypocalcemia; F41.9 Anxiety disorder, unspecified; F32.9 Major depressive disorder, single episode, unspecified; E66.9 Obesity, unspecified; Z76.5 Malingerer [conscious simulation]; Z98.890 Other specified postprocedural states; G47.33 Obstructive sleep apnea (adult) (pediatric); Z68.35 Body mass index [BMI] 35.0-35.9, adult; J96.21 Acute and chronic respiratory failure with hypoxia; Z91.15 Patient's noncompliance with renal dialysis; E89.2 Postprocedural hypoparathyroidism; Z88.1 Allergy status to other antibiotic agents; Z88.5 Allergy status to narcotic agent; Z88.8 Allergy status to other drugs, medicaments and biological substances; Z91.041 Radiographic dye allergy status; Z88.2 Allergy status to sulfonamides; Z91.013 Allergy to seafood; Z91.040 Latex allergy status
CPT/HCPCS: 31720; 36415; 36600; 70450; 71010; 74000; 80048; 80053; 80069; 80076; 80307; 81001; 82140; 82272; 82550; 82805; 82962; 83036; 83605; 83690; 83735; 83880; 84100; 84134; 84145; 84484; 85025; 85610; 85730; 86850; 86900; 86901; 86920; 87040; 87070; 87328; 87329; 87493; 87493-59; 87641; 89055; 93005; 94002; 94003; 94640; 94660; 94770; 96374; 96375; 96376; 99285; A9270-GY; C9113; G0257; G0480; J0360; J0885; J1170; J1940; J2930; J3010; P9016